=== PATIENT | female | born 1955 | race Hispanic/Latino ===

== ENCOUNTER 2023-01-25 14:42 | Outpatient (CLI) | payer OTHER | END 2023-01-25 14:43 | disposition home or self-care (01) | LOC: CSHULT 14:42 | PROVIDERS: ATTEND Family Medicine | DX: M79.604 Pain in right leg (principal); Z98.890 Other specified postprocedural states; R05.1 Acute cough; J90 Pleural effusion, not elsewhere classified | CPT/HCPCS: 71046 ==